=== PATIENT | male | born 1985 | race African-American/Black ===

== ENCOUNTER 2024-02-03 14:25 | Emergency (ER) | payer MEDICAID, OTHER ==
[~2024-02-03] VITALS: Ht 175.3 cm; Wt 90.3 kg
[~2024-02-03 14:25] MED LIST: ALBUAER3 IN; AZIT-185 PO; IBUP-1456 PO; PRED-188 PO
--- NOTE | 2024-02-03 14:58 | ED.PDOC ---
Musculoskeletal HPI Comments 38 yo male had a mechanical fall coming down the stairs 3 days ago and is c/o sharp, intermittent, non radiating mild pain in the right knee that is worse with weight bearing. Using cousin's crutches to avoid weight bearing, but has not taken any meds. Chief Complaint: Lower Extremity Time Seen by MD: 14:38 Primary Care Provider: NONE Reviewed Notes: Nurses Notes, Allergies Allergies: Coded Allergies: NO KNOWN ALLERGIES (Unverified , 02/03/24) Home Meds Active Scripts Ibuprofen (Ibuprofen) 800 Mg Tab, 800 MG PO Q6HP PRN, #30 TAB Prov:FIDEL HIGHINA N.P. 03/29/13 Azithromycin (ZITHROMAX TABLET) 250 Mg Tb, 500 MG PO UD, #6 TAB.CHEW Prov:JASON HIGH N.P. 03/29/13 Albuterol Sulfate (VENTOLIN MDI) 90 Mcg Ih, 2 PUFF IN Q6HP PRN, #1 AER Prov:FIDEL HIGHINA N.P. 03/29/13 Prednisone (PREDNISONE) 20 Mg Tb, 60 MG PO DAILY, #15 TAB Prov:FIDEL HIGHINA N.P. 03/29/13 Information Source: Patient Mode of Arrival: Ambulatory Brought in by: self Location: Right Extremity Location: Knee Timing: Days Severity: Mild, Moderate Able to Move Extremity: Yes Bear Weight: Fully Pain: Moderate Past Medical History PAST MEDICAL HISTORY: Asthma Surgical History: Denies all surgeries Family History Family History: Unobtainable Social History Smoker: Non-Smoker Alcohol: Denies ETOH Use Drugs: Denies Drug Use All Other Systems: Reviewed and Negative Physical Exam General Appearance: No Apparent Distress, Normal HEENT: NOT DONE Neck: NOT DONE Respiratory: NOT DONE Cardiovascular: NOT DONE Breast Exam: Deferred Gastrointestinal: NOT DONE Genitalia: Deferred Pelvic: Other Rectal: Other Extremities: No calf tenderness, Normal capillary refill, Normal inspection, Normal range of motion, Other (mildly tender medial aspect of the right knee. no swelling. No crepitus. FROM) Neurologic: NOT DONE Cerebellar Function: NOT DONE Reflexes: NOT DONE Skin: Dry, Normal Color, Warm Lymphatic: NOT DONE Was a procedure done? Was a procedure done?: No Differential Diagnosis EXT Differential Diagnosis: Cellulitis, Other (Sprain, Ligamental Tear, Fx, Dislocation, Effusion, OA/DJD, septic joint) Other Differential Diagnosis Sprain, Ligamental Tear, Fx, Dislocation, Effusion, OA/DJD, septic joint X-Ray, Labs, Meds, VS Vital Signs Date Time Temp Pulse Resp B/P (MAP) Pulse Ox O2 Delivery O2 Flow Rate FiO2 02/03/24 14:50 98.0 101 18 150/82 (104) 99 X-Ray, Labs, Meds, VS Comment XR R knee complete: reviewed by me; normal soft tissues, joint alignment and bone structure. no fractures or dislocation. Time of 1ST Reevaluation: 15:50 Reevaluation 1ST: Improved Patient Education/Counseling: Diagnosis, Treatment Family Education/Counseling: No Family Present Departure 1 Departure Time of Disposition: 16:23 Impression: Primary Impression: Knee sprain Disposition: 01 HOME / SELF CARE / HOMELESS Condition: Stable Discharged With: Self Critical Care Note Critical Care Time?: No Stability Stability form required: MAO Blankenship MD Feb 03, 2024 14:58
--- NOTE | 2024-02-03 16:16 | DVH ---
EXAM: XY R KNEE 3V XRAY CLINICAL HISTORY: pain COMPARISON: None TECHNIQUE: XY R KNEE 3V XRAY Findings/Impression: 3 views of the right knee. There is no evidence of an acute fracture, dislocation, blastic, or lytic lesions. No radiopaque foreign bodies. No joint effusion. Mild to moderate soft tissue edema.
[2024-02-03 18:37] VITALS: BP 149/90; PULSE 97; RESP 16; TEMP 97.8; O2SAT 99
[2024-02-03] MEDS: ACETAMINOPHEN 500 MG TAB PO ONE (18:43)
== END 2024-02-03 18:39 | disposition home or self-care (01) ==
LOC: ER 14:25
DX: S83.8X1A Sprain of other specified parts of right knee, initial encounter (principal); J45.909 Unspecified asthma, uncomplicated; Z79.899 Other long term (current) drug therapy; W10.9XXA Fall (on) (from) unspecified stairs and steps, initial encounter; Y93.89 Activity, other specified; Y92.89 Other specified places as the place of occurrence of the external cause; Y99.8 Other external cause status
CPT/HCPCS: 73562